=== PATIENT | female | born 1970 | race Hispanic/Latino ===

== ENCOUNTER 2021-04-14 21:45 | Emergency (ER) | payer OTHER ==
[~2021-04-14] VITALS: Ht 162.6 cm; Wt 72.6 kg
[2021-04-14] MEDS ORDERED: FAMOTIDINE 20 MG TAB PO ONE (22:15)
[2021-04-14] MEDS ORDERED: DIPHENHYDRAMINE HCL INJ 50 MG/ML VIAL IM ONE (22:15)
[2021-04-14] MEDS ORDERED: METHYLPREDNISOLONE SOD SUCC 125 MG/2ML VIAL IM ONE (22:15)
[2021-04-14] MEDS ORDERED: METHYLPREDNISOLONE SOD SUCC 125 MG/2ML VIAL ONE (22:16)
[2021-04-14] MEDS ORDERED: FAMOTIDINE 20 MG TAB ONE (22:16)
[2021-04-14] MEDS ORDERED: DIPHENHYDRAMINE HCL INJ 50 MG/ML VIAL ONE (22:17)
== END 2021-04-14 22:50 | disposition home or self-care (01) ==
LOC: ER 22:04
DX: T78.1XXA Other adverse food reactions, not elsewhere classified, initial encounter (principal); L27.2 Dermatitis due to ingested food; L50.0 Allergic urticaria
CPT/HCPCS: 99282; J1200; J2930